=== PATIENT | female | born 1985 | race Asian ===

== ENCOUNTER 2019-10-28 16:21 | Outpatient (CLI) | payer OTHER ==
[~2019-10-28] VITALS: Ht 160 cm; Wt 94.1 kg
[2019-10-28 16:36] VITALS: BP 113/67
[2019-10-28 16:49] LABS: BASOPHILS # (AUTO) 0.09 x10^3/uL (0-0.1); BASOPHILS % (AUTO) 1 % (0-1); EOSINOPHILS # (AUTO) 0.19 x10^3/uL (0-0.4); EOSINOPHILS % (AUTO) 2 % (1-7); LYMPHOCYTES # (AUTO) 1.92 x10^3/uL (1-3.4); LYMPHOCYTES % (AUTO) 17 % (22-44); MD NO; MEAN CORPUSCULAR HEMOGLOBIN 31.4 pg (27.0-34.8); MEAN CORPUSCULAR HGB CONC 33.7 g/dL (32.4-35.8); MEAN PLATELET VOLUME 7.8 fL (7.4-10.4); MONOCYTES # (AUTO) 0.85 x10^3/uL (0.2-0.8); MONOCYTES % (AUTO) 8 % (2-9); NEUTROPHILS # (AUTO) 8.27 x10^3/uL (1.8-6.8); NEUTROPHILS % (AUTO) 73 % (42-75); PLATELET COUNT 383 x10^3/uL (130-400); RED BLOOD COUNT 4.13 x10^6/uL (3.82-5.3); RED CELL DISTRIBUTION WIDTH 12.6 % (9.6-15.2)
[2019-10-28 16:58] LABS: ALANINE AMINOTRANSFERASE 18 U/L (12-78); ALBUMIN 2.8 g/dL (3.4-5.0); ANION GAP 8 mmol/L (5-15); CALCIUM 8.6 mg/dL (8.5-10.1); CHLORIDE 109 mmol/L (98-107)
[2019-10-28 16:59] LABS: CREATININE,URINE RANDOM 85.6 mg/dL
[2019-10-28 17:01] LABS: ALKALINE PHOSPHATASE 140 U/L (45-117); BILIRUBIN,TOTAL 0.3 mg/dL (0.2-1.0); CREATININE 0.73 mg/dL (0.55-1.02); TOTAL PROTEIN 6.7 g/dL (6.4-8.2)
[2019-10-28 17:02] LABS: BILIRUBIN, DIRECT < 0.1 mg/dL (0.1-0.2)
== END 2019-10-28 17:20 | disposition home or self-care (01) ==
LOC: LDOP 16:21
PROVIDERS: ATTEND Obstetrics & Gynecology
DX: O13.3 Gestational [pregnancy-induced] hypertension without significant proteinuria, third trimester (principal); Z3A.35 35 weeks gestation of pregnancy
CPT/HCPCS: 36415; 59025; 80053; 82248; 82570; 84156; 84550; 85025

== ENCOUNTER 2019-11-14 18:39 | Inpatient (IN) | payer OTHER ==
[~2019-11-14] VITALS: Ht 160 cm; Wt 94.0 kg
[2019-11-14] MEDS ORDERED: LIDOCAINE 1%, 20ML ONE (19:41)
[2019-11-14] MEDS ORDERED: MISOPROSTOL 200 MCG TABLET ONE (19:41)
[2019-11-14] MEDS ORDERED: OXYTOCIN 30U/ 0.9% NaCL 500ML 500 ML ONE (19:41)
[2019-11-14] MEDS ORDERED: OXYTOCIN 30U/ 0.9% NaCL 500ML 500 ML IV PRN (19:56)
[2019-11-14] MEDS ORDERED: OXYTOCIN 30U/ 0.9% NaCL 500ML 500 ML IV ONE (19:56)
[2019-11-14] MEDS ORDERED: D5%-LACTATED RINGERS 1,000 ML IV SCH (19:56)
[2019-11-14] MEDS ORDERED: TERBUTALINE 1 MG/ML, 1ML IVPush PRN (20:00)
[2019-11-14] MEDS ORDERED: FENTANYL PF 100 MCG/2ML IV PRN (20:00)
[2019-11-14] MEDS ORDERED: FENTANYL PF 100 MCG/2ML IVPush PRN (20:00)
[2019-11-14] MEDS ORDERED: CALCIUM CARBONATE 500 MG TAB.CHEW PO PRN (20:00)
[2019-11-14] MEDS ORDERED: TERBUTALINE 1 MG/ML, 1ML SQ PRN (20:00)
[2019-11-14] MEDS ORDERED: SODIUM CITRATE/CITRIC ACID 30 ML UDC PO PRN (20:00)
[2019-11-14] MEDS ORDERED: ONDANSETRON 2MG/ML, 2ML IVPush PRN (20:00)
[2019-11-14] MEDS ORDERED: METOCLOPRAMIDE 5 MG/ML, 2ML IVPush PRN (20:00)
[2019-11-14] MEDS: LACTATED RINGERS 1,000 ML IV SCH ×2 (20:01→22:52)
[2019-11-14 20:16] LABS: BASOPHILS # (AUTO) 0.19 x10^3/uL (0-0.1); BASOPHILS % (AUTO) 2 % (0-1); EOSINOPHILS # (AUTO) 0.14 x10^3/uL (0-0.4); EOSINOPHILS % (AUTO) 1 % (1-7); LYMPHOCYTES # (AUTO) 2.13 x10^3/uL (1-3.4); LYMPHOCYTES % (AUTO) 18 % (22-44); MD NO; MEAN CORPUSCULAR HEMOGLOBIN 31.1 pg (27.0-34.8); MEAN CORPUSCULAR HGB CONC 33.2 g/dL (32.4-35.8); MEAN CORPUSCULAR VOLUME 93.8 fL (80-100); MEAN PLATELET VOLUME 8.2 fL (7.4-10.4); MONOCYTES # (AUTO) 0.58 x10^3/uL (0.2-0.8); MONOCYTES % (AUTO) 5 % (2-9); NEUTROPHILS % (AUTO) 75 % (42-75); PLATELET COUNT 330 x10^3/uL (130-400); RED BLOOD COUNT 4.02 x10^6/uL (3.82-5.3); RED CELL DISTRIBUTION WIDTH 12.9 % (9.6-15.2)
[2019-11-14] MEDS ORDERED: NEWBORN KIT ONE (20:55)
[2019-11-14] MEDS ORDERED: FENTANYL PF 100 MCG/2ML ONE (23:06)
[2019-11-14] MEDS ORDERED: FENTANYL/BUPIV./NS/PF 250 ML EPIDCONT ONE (23:07)
[2019-11-14] MEDS ORDERED: BUPIVACAINE 0.25% ONE (23:07)
[2019-11-14] MEDS ORDERED: LACTATED RINGERS 1,000 ML IV SCH (23:33)
[2019-11-14] MEDS ORDERED: FENTANYL/BUPIV./NS/PF 250 ML EPIDCONT SCH (23:33)
[2019-11-15] MEDS ORDERED: LACTATED RINGERS 1,000 ML IVBOLUS PRN
[2019-11-15] MEDS ORDERED: EPHEDRINE 50 MG/ML, 1ML IVPush PRN
[2019-11-15] MEDS ORDERED: ONDANSETRON 2MG/ML, 2ML IVPush PRN
[2019-11-15] MEDS ORDERED: OXYTOCIN 30U/ 0.9% NaCL 500ML 500 ML ONE ×2 (05:26→07:59)
[2019-11-15] MEDS: OXYTOCIN 30U/ 0.9% NaCL 500ML 500 ML IV SCH ×14 (05:29→23:57)
[2019-11-15] MEDS ORDERED: SIMETHICONE 80 MG CHEW TAB PO PRN (05:30)
[2019-11-15] MEDS ORDERED: DOCUSATE 100 MG CAPSULE PO PRN (05:30)
[2019-11-15] MEDS ORDERED: MISOPROSTOL 200 MCG TABLET PR PRN (05:30)
[2019-11-15] MEDS ORDERED: ONDANSETRON 2MG/ML, 2ML IV PRN (05:30)
[2019-11-15] MEDS ORDERED: METHYLERGONOVINE 0.2 MG/ML IM PRN (05:30)
[2019-11-15] MEDS ORDERED: TRANEXAMIC ACID 100 MG/ML, 10ML IV ONE (05:30)
[2019-11-15] MEDS ORDERED: CALCIUM CARBONATE 500 MG TAB.CHEW PO PRN (05:30)
[2019-11-15] MEDS ORDERED: ACETAMINOPHEN 325 MG TABLET PO PRN (05:30)
[2019-11-15] MEDS ORDERED: OXYTOCIN 10 UNITS/ML, 1ML IM PRN (05:30)
[2019-11-15] MEDS ORDERED: IBUPROFEN 600 MG TABLET ONE (07:42)
[2019-11-15] MEDS: IBUPROFEN 600 MG TABLET PO PRN ×3 (07:44→23:23)
[2019-11-15] MEDS ORDERED: ACETAMINOPHEN 650 MG SUPP ONE (08:30)
[2019-11-15] MEDS ORDERED: OXYcodone/APAP 5/325MG TABLET ONE (08:34)
[2019-11-15] MEDS: OXYcodone/APAP 5/325MG TABLET PO PRN ×4 (08:36→21:57)
[2019-11-15 08:45] VITALS: BP 111/72
[2019-11-15 12:30] VITALS: BP 108/67
[2019-11-15] MEDS: PRENATAL VIT/IRON/FA 1 EACH TABLET PO SCH (12:49)
[2019-11-15 14:32] LABS: BASOPHILS # (AUTO) 0.03 x10^3/uL (0-0.1); BASOPHILS % (AUTO) 0 % (0-1); EOSINOPHILS # (AUTO) 0.13 x10^3/uL (0-0.4); EOSINOPHILS % (AUTO) 1 % (1-7); LYMPHOCYTES # (AUTO) 1.64 x10^3/uL (1-3.4); LYMPHOCYTES % (AUTO) 13 % (22-44); MD NO; MEAN CORPUSCULAR HGB CONC 33.2 g/dL (32.4-35.8); MEAN CORPUSCULAR VOLUME 93.4 fL (80-100); MEAN PLATELET VOLUME 7.9 fL (7.4-10.4); MONOCYTES # (AUTO) 0.75 x10^3/uL (0.2-0.8); MONOCYTES % (AUTO) 6 % (2-9); NEUTROPHILS # (AUTO) 9.95 x10^3/uL (1.8-6.8); NEUTROPHILS % (AUTO) 80 % (42-75); PLATELET COUNT 291 x10^3/uL (130-400); RED BLOOD COUNT 3.62 x10^6/uL (3.82-5.3); RED CELL DISTRIBUTION WIDTH 12.8 % (9.6-15.2)
[2019-11-15 17:00] VITALS: BP 110/57
[2019-11-15 20:40] VITALS: BP 108/72
[2019-11-15] MEDS ORDERED: DIPH,PERTUSS(ACELL),TET VAC/PF NC IM-VACC ONE (23:30)
[2019-11-16 00:15] VITALS: BP 114/70
[2019-11-16] MEDS: OXYTOCIN 30U/ 0.9% NaCL 500ML 500 ML IV SCH ×8 (01:23→11:25)
[2019-11-16] MEDS: OXYcodone/APAP 5/325MG TABLET PO PRN ×2 (02:27→08:40)
[2019-11-16 04:20] VITALS: BP 119/75
[2019-11-16] MEDS: IBUPROFEN 600 MG TABLET PO PRN (05:33)
[2019-11-16 07:55] VITALS: BP 135/85
[2019-11-16] MEDS: PRENATAL VIT/IRON/FA 1 EACH TABLET PO SCH (08:39)
[2019-11-16] MEDS ORDERED: IBUP-1222 PO (10:52)
[2019-11-16] MEDS ORDERED: OXYC-302 PO (10:52)
== END 2019-11-16 11:50 | disposition home or self-care (01) | DRG 807 ==
LOC: LDOP 18:39 → LDIP 19:43 → 2NW 11-15 09:05
PROVIDERS: ADMIT Obstetrics & Gynecology; ATTEND Obstetrics & Gynecology
PROC: 10E0XZZ Delivery of Products of Conception, External Approach (ICD-10-PCS; principal; 2019-11-15)
PROC: 3E033VJ Introduction of Other Hormone into Peripheral Vein, Percutaneous Approach (ICD-10-PCS; 2019-11-15)
PROC: 3E0R3BZ Introduction of Anesthetic Agent into Spinal Canal, Percutaneous Approach (ICD-10-PCS; 2019-11-15)
PROC: 00HU33Z Insertion of Infusion Device into Spinal Canal, Percutaneous Approach (ICD-10-PCS; 2019-11-15)
DX: O69.81X0 Labor and delivery complicated by cord around neck, without compression, not applicable or unspecified (principal); Z37.0 Single live birth; Z20.828 Contact with and (suspected) exposure to other viral communicable diseases; Z3A.38 38 weeks gestation of pregnancy
CPT/HCPCS: 36415; 82803; 84112; 85025; 86592; 86850; 86900; 87635; 87806; 90715; G0378; G0475; J2590; J3010; J7120